=== PATIENT | male | born 1960 | race Two or more races ===

== ENCOUNTER 2017-05-20 05:56 | Day surgery (SDC) | payer BC ==
[2017-05-19 08:19] VITALS: BMI 24.5
[2017-05-20] MEDS ORDERED: GENTAMICIN SO4 80 MG/2 ML VIAL ONE (10:55)
[2017-05-20] MEDS ORDERED: AMPICILLIN SODIUM 2 GM VIAL ONE (10:55)
[2017-05-20] MEDS ORDERED: PROPOFOL 20 ML ONE (12:10)
[2017-05-20] MEDS ORDERED: MIDAZOLAM HCL 5 MG/1 ML Single Dose Vial ONE (12:10)
[2017-05-20 13:58] VITALS: TEMP 97.9
[2017-05-20 14:55] VITALS: BP 112/68; PULSE 62
== END 2017-05-20 14:50 | disposition home or self-care (01) ==
LOC: JASU-ENDO 05:56
PROVIDERS: ATTEND Internal Medicine Gastroenterology
PROC: 0DJD8ZZ Inspection of Lower Intestinal Tract, Via Natural or Artificial Opening Endoscopic (ICD-10-PCS; principal; 2017-05-20 12:00)
DX: Z12.11 Encounter for screening for malignant neoplasm of colon (principal); K64.8 Other hemorrhoids; I10 Essential (primary) hypertension; I48.2 Chronic atrial fibrillation; I50.9 Heart failure, unspecified; E78.5 Hyperlipidemia, unspecified; Z86.73 Personal history of transient ischemic attack (TIA), and cerebral infarction without residual deficits; Z79.01 Long term (current) use of anticoagulants